=== PATIENT | male | born 1980 | race Caucasian/White ===

== ENCOUNTER 2016-07-05 20:49 | Emergency (ER) | payer OTHER ==
[~2016-07-05] VITALS: Ht 180.3 cm; Wt 127.0 kg
[~2016-07-05 20:49] MED LIST: BACTRIM DS 8001 TA1 PO; CLARITIN10 MG PO; DOXYCYCLINE HY100 M3 PO; EES400 MG PO; FLEXERIL10 MG PO; MOTRIN800 MG PO; NKHM; PEN-VEE K500 MG PO; ZITHROMAX Z PA250 MG PO
[2016-07-05 21:04] LABS: BASO # 0.1 10*3/uL (0.0-0.1); BASO % 0.6 % (0.0-1.0); EOS # 0.2 10*3/uL (0.0-0.4); EOS % 2.1 % (1.0-4.0); HEMATOCRIT 45.4 % (42.0-52.0); HEMOGLOBIN 15.1 g/dl (14.0-18.0); LYMPH # 2.9 10*3/uL (1.3-4.4); LYMPH % 26.9 % (27.0-41.0); MEAN CELL VOLUME 84.7 fl (80.0-94.0); MEAN CORPUSCULAR HGB 28.2 pg (27.0-31.0); MEAN CORPUSCULAR HGB CONC 33.3 g/dl (33.0-37.0); MEAN PLATELET VOLUME 10.5 fl (9.6-12.3); MONO # 0.9 10*3/uL (0.1-1.0); MONO % 8.5 % (3.0-9.0); NEUT # 6.6 10*3/uL (2.3-7.9); NEUT % 61.5 % (47.0-73.0); PLATELET COUNT AUTOMATED 289 10*3/uL (130-400); RED BLOOD COUNT 5.36 10*6/uL (4.50-5.90); RED CELL DISTRI WIDTH 12.8 % (0-14.5); WHITE BLOOD COUNT 10.6 10*3/uL (4.8-10.8)
[2016-07-05 21:14] LABS: PROTHROMBIN TIME 10.6 SECONDS (9.0-12.4)
[2016-07-05 21:22] LABS: ALBUMIN 3.6 gm/dl (3.1-4.5); ALKALINE PHOSPHATASE 103 U/L (45-117); BILIRUBIN, TOTAL 0.4 mg/dl (0.2-1.0); BUN 11 mg/dl (7-24); CARBON DIOXIDE 32 mmol/L (21-32); CHLORIDE 105 mmol/L (98-107); EST GLOM FILT AFRICAN AMERICAN > 60 ml/min; GLUCOSE 118 mg/dL (65-99); POTASSIUM 3.9 mmol/L (3.5-5.1); SGOT/AST 28 IU/L (3-35); SGPT/ALT 39 U/L (12-78); SODIUM 143 mmol/L (136-145); TOTAL PROTEIN 7.6 gm/dL (6.4-8.2)
[2016-07-05 21:23] LABS: TROPONIN I < 0.015 ng/ml (<0.045)
[2016-07-05] MEDS ORDERED: PRILOSEC20 M1 PO (23:04)
== END 2016-07-05 23:00 | disposition home or self-care (01) ==
LOC: ED 20:49
PROVIDERS: Emergency Medicine Emergency Medical Services
DX: R07.89 Other chest pain (principal)

== ENCOUNTER → 2019-06-01 | Outpatient (CLI) | payer OTHER ==
[~2019-06-01] MED LIST changes: +OMEPRAZOLE20 M3 PO; +PRILOSEC20 M1 PO; +ZANTAC 150150 MG PO
== END | disposition home or self-care (01) ==
LOC: RAD 08:28
DX: M99.13 Subluxation complex (vertebral) of lumbar region (principal); M43.8X4 Other specified deforming dorsopathies, thoracic region

== ENCOUNTER 2020-11-19 13:00 | Emergency (ER) | payer SELFPAY ==
[~2020-11-19] VITALS: Ht 180.3 cm; Wt 104.3 kg
[2020-11-19] MEDS ORDERED: AMOXICILLIN500 M2 PO (16:50)
== END 2020-11-19 16:52 | disposition home or self-care (01) ==
LOC: ED 13:00
DX: J02.9 Acute pharyngitis, unspecified (principal)

== ENCOUNTER 2022-11-15 06:15 | Emergency (ER) | payer SELFPAY ==
[~2022-11-15] VITALS: Ht 180.3 cm; Wt 108.9 kg
[~2022-11-15 06:15] MED LIST changes: +AMOXICILLIN500 M2 PO
[2022-11-15 07:00] LABS: BASO # 0.1 10*3/uL (0.0-0.1); BASO % 0.8 % (0.0-1.0); EOS # 0.2 10*3/uL (0.0-0.4); EOS % 1.8 % (1.0-4.0); HEMATOCRIT 46.1 % (42.0-52.0); LYMPH # 3.2 10*3/uL (1.3-4.4); LYMPH % 31.8 % (27.0-41.0); MEAN CELL VOLUME 84.7 fl (80.0-94.0); MEAN CORPUSCULAR HGB CONC 34.3 g/dl (33.0-37.0); MONO # 0.9 10*3/uL (0.1-1.0); MONO % 8.9 % (3.0-9.0); NEUT # 5.7 10*3/uL (2.3-7.9); NEUT % 56.3 % (47.0-73.0); PLATELET COUNT AUTOMATED 276 10*3/uL (130-400); RED BLOOD COUNT 5.44 10*6/uL (4.50-5.90); RED CELL DISTRI WIDTH 13.2 % (0-14.5); WHITE BLOOD COUNT 10.2 10*3/uL (4.8-10.8)
[2022-11-15 07:42] LABS: ACT PARTIAL THROMBO TIME 27.8 SECONDS (20.0-32.1)
[2022-11-15 07:57] LABS: ALKALINE PHOSPHATASE 79 U/L (46-116); BUN 10 mg/dl (9-23); CHLORIDE 107 mmol/L (98-107); POTASSIUM 3.9 mmol/L (3.4-5.1); SGPT/ALT 33 U/L (10-49); TOTAL PROTEIN 6.9 gm/dL (6.0-8.0)
== END 2022-11-15 10:25 | disposition home or self-care (01) ==
LOC: ED 06:15
PROVIDERS: Internal Medicine
DX: R07.89 Other chest pain (principal); F41.9 Anxiety disorder, unspecified; Z98.890 Other specified postprocedural states

== ENCOUNTER 2023-06-12 06:05 | Emergency (ER) | payer SELFPAY ==
[~2023-06-12] VITALS: Ht 177.8 cm; Wt 113.4 kg
[2023-06-12] MEDS ORDERED: AMOX-CLAV 875-1 EACH PO (06:17)
[2023-06-12] MEDS ORDERED: MELOXICAM15 MG PO (06:17)
== END 2023-06-12 06:25 | disposition home or self-care (01) ==
LOC: ED 06:05
DX: K04.7 Periapical abscess without sinus (principal); K02.9 Dental caries, unspecified; Z98.890 Other specified postprocedural states; F17.210 Nicotine dependence, cigarettes, uncomplicated